=== PATIENT | male | born 1995 | race African-American/Black ===

== ENCOUNTER 2021-08-04 08:38 | Day surgery (SDC) | payer OTHER ==
[2021-07-28 12:13] VITALS: BMI 28.8
[~2021-08-04 08:38] MED LIST: BUPIVACAINE HCL/PF 0.25% (2.5MG/ML) 10 ML VIAL IJ ONE
[2021-08-04] MEDS ORDERED: MIDAZOLAM HCL 2 MG/2 ML SINGLE DOSE VIAL ONE ×2 (09:04→09:47)
[2021-08-04] MEDS ORDERED: ROPIVACAINE HCL 0.5% 30ML VIAL ONE (09:04)
[2021-08-04] MEDS ORDERED: PROPOFOL 20 ML ONE ×7 (09:24→11:01)
[2021-08-04] MEDS ORDERED: DEXMEDETOMIDINE HCL 200 MCG/2 ML IVPB ONE (09:38)
[2021-08-04] MEDS ORDERED: ONDANSETRON 4 MG/2 ML VIAL ONE (09:47)
[2021-08-04] MEDS ORDERED: KETOROLAC TROMETHAMINE 30 MG/1 ML VIAL ONE (09:47)
[2021-08-04] MEDS ORDERED: LIDOCAINE HCL/PF 2% SDV 5ML VIAL ONE (09:47)
[2021-08-04] MEDS ORDERED: DEXAMETHASONE SOD PHOSPHATE 4 MG/1 ML VIAL ONE (09:47)
[2021-08-04] MEDS ORDERED: ceFAZolin SODIUM 1 GM VIAL ONE (09:47)
[2021-08-04] MEDS ORDERED: BUPIVACAINE HCL/PF 0.25% (2.5MG/ML) 10 ML VIAL ONE (10:29)
[2021-08-04] MEDS ORDERED: oxyCODONE HCL 5 MG TABLET PO PRN ×2 (12:07)
[2021-08-04] MEDS ORDERED: ONDANSETRON 4 MG/2 ML VIAL IVPUSH PRN (12:07)
[2021-08-04] MEDS ORDERED: LACTATED RINGERS SOLUTION 1,000 ML IV SCH (12:15)
[2021-08-04 13:18] VITALS: TEMP 97.3
[2021-08-04 13:44] VITALS: BP 114/64; PULSE 66
== END 2021-08-04 13:46 | disposition home or self-care (01) ==
LOC: FASU 08:38
PROVIDERS: ATTEND Orthopaedic Surgery Hand Surgery
PROC: 0PUN07Z Supplement Left Carpal with Autologous Tissue Substitute, Open Approach (ICD-10-PCS; principal; 2021-08-04 10:00)
DX: S62.035A Nondisplaced fracture of proximal third of navicular [scaphoid] bone of left wrist, initial encounter for closed fracture (principal); X58.XXXA Exposure to other specified factors, initial encounter; Y93.9 Activity, unspecified; Y92.9 Unspecified place or not applicable
CPT/HCPCS: 73110-TC-LT-FY; 94760